=== PATIENT | female | born 1985 | race American Indian/Alaskan Native ===

== ENCOUNTER 2017-11-28 12:38 | Emergency (ER) | payer SELFPAY ==
[2017-11-28] MEDS ORDERED: ASPIRIN PO ONE (13:00)
[2017-11-28 14:06] LABS: BUN/Creatinine Ratio 9; Blood Urea Nitrogen 7 mg/dL (7-17); Calcium 9.7 mg/dL (8.4-10.2); Hemolysis Index 7
[2017-11-28 14:07] LABS: Creatine Kinase MB 1.8 ng/mL (0.0-4.0)
[2017-11-28 14:10] LABS: Basophils # (Auto) 0.1 K/mm3 (0.0-0.1); Basophils % (Auto) 0.9 % (0.0-1.8); Eosinophils # (Auto) 0.1 K/mm3 (0.0-0.4); Eosinophils % (Auto) 1.6 % (0.0-4.3); Hematocrit 42.7 % (30.3-42.9); Hemoglobin 14.1 gm/dl (10.1-14.3); Lymphocytes % (Auto) 24.9 % (13.4-35.0); Mean Corpuscular HGB Conc 33 % (30-34); Mean Corpuscular Hemoglobin 29 pg (28-32); Mean Corpuscular Volume 87 fl (79-97); Monocytes # (Auto) 0.6 K/mm3 (0.0-0.8); Monocytes % (Auto) 7.5 % (0.0-7.3); Platelet Count 337 K/mm3 (140-440); Red Blood Count 4.93 M/mm3 (3.65-5.03)
[2017-11-28 14:17] LABS: INR 0.91 (0.87-1.13)
[2017-11-28 14:18] LABS: Partial Thromboplastin Time 25.4 Sec. (24.2-36.6)
[2017-11-28 14:20] LABS: Free T4 (Free Thyroxine) 1.28 ng/dL (0.76-1.46)
--- NOTE | 2017-11-28 15:09 | Emergency Department Report ---
ED General Adult HPI - General Chief complaint: Chest Pain Stated complaint: TOO FAST HEARTBEAT Time Seen by Provider: 11/28/17 13:27 Source: patient Mode of arrival: Stretcher Limitations: No Limitations - History of Present Illness Initial comments: 31-year-old female who arrives via EMS. Prehospital EKG demonstrates a narrow complex sober trigger with tachycardia at about 220. The patient states she had "crushing" substernal chest pain to paramedics. By the time of her arrival the chest pain had improved. She did note that her heart was racing at that time of her chest pain she states. However she seems to vary on that part of the history. In any case the chest pain was worse with a deep inspiration but did not radiate. The patient's had no recent travel. At the time of arrival she is not complaining of shortness of breath. She stated that she was very sweaty with the chest pain but denied nausea or vomiting. She states that she has never had an episode like this before. -: Sudden, minutes(s) Location: chest Radiation: non-radiation Quality: crushing Consistency: now resolved Improves with: none Worsens with: none Associated Symptoms: denies other symptoms (except as listed), chest pain, diaphoresis Treatments Prior to Arrival: none - Related Data Allergies Allergy/AdvReac Type Severity Reaction Status Date / Time No Known Allergies Allergy Verified 11/28/17 12:54 ED Review of Systems ROS: Stated complaint: TOO FAST HEARTBEAT Other details as noted in HPI Constitutional: denies: chills, fever Eyes: denies: eye pain, eye discharge, vision change ENT: denies: ear pain, throat pain Respiratory: denies: cough, shortness of breath, wheezing Cardiovascular: as per HPI, chest pain. denies: palpitations Endocrine: no symptoms reported Gastrointestinal: denies: abdominal pain, nausea, diarrhea Genitourinary: denies: urgency, dysuria, discharge Musculoskeletal: denies: back pain, joint swelling, arthralgia Skin: denies: rash, lesions Neurological: denies: headache, weakness, paresthesias Psychiatric: denies: anxiety, depression Hematological/Lymphatic: denies: easy bleeding, easy bruising ED Past Medical Hx - Past Medical History Hx Asthma: Yes - Surgical History Past Surgical History?: No - Social History Smoking Status: Current Every Day Smoker Substance Use Type: None ED Physical Exam - General Limitations: No Limitations General appearance: alert, in no apparent distress, obese - Head Head exam: Present: atraumatic, normocephalic - Eye Eye exam: Present: normal appearance, PERRL, EOMI. Absent: scleral icterus - ENT ENT exam: Present: mucous membranes moist - Neck Neck exam: Present: normal inspection. Absent: tenderness, meningismus - Respiratory Respiratory exam: Present: normal lung sounds bilaterally. Absent: respiratory distress - Cardiovascular Cardiovascular Exam: Present: regular rate, normal rhythm. Absent: systolic murmur, diastolic murmur, rubs, gallop - GI/Abdominal GI/Abdominal exam: Present: soft, normal bowel sounds. Absent: distended, tenderness, guarding, rebound, rigid - Extremities Exam Extremities exam: Present: normal inspection - Back Exam Back exam: Present: normal inspection - Neurological Exam Neurological exam: Present: alert, oriented X3, CN II-XII intact. Absent: motor sensory deficit - Psychiatric Psychiatric exam: Present: normal affect, normal mood - Skin Skin exam: Present: warm, dry, intact, normal color. Absent: rash ED Course Vital Signs 11/28/17 12:54 Temperature 97.8 F Pulse Rate 90 Respiratory 16 Rate Blood Pressure 134/81 O2 Sat by Pulse 100 Oximetry - Reevaluation(s) Reevaluation #1: No recurrent chest pain. Heart rate in the high 90s. Pulse oximetry is normal. 11/28/17 15:55 Reevaluation #2: Discussed with Dr. Schafer. Further care and evaluation per Dr. Schafer. 11/28/17 15:58 ED Medical Decision Making - Lab Data Result diagrams: 11/28/17 13:34 11/28/17 13:34 Laboratory Results - last 24 hr 11/28/17 11/28/17 11/28/17 13:34 13:34 13:39 WBC 7.9 RBC 4.93 Hgb 14.1 Hct 42.7 MCV 87 MCH 29 MCHC 33 RDW 15.0 Plt Count 337 Lymph % (Auto) 24.9 Fleming % (Auto) 7.5 H Eos % (Auto) 1.6 Baso % (Auto) 0.9 Lymph # 2.0 Fleming # 0.6 Eos # 0.1 Baso # 0.1 Seg Neutrophils % 65.1 Seg Neutrophils # 5.2 PT INR APTT D-Dimer Sodium 138 Potassium 4.8 Chloride 98.3 Carbon Dioxide 26 Anion Gap 19 BUN 7 Creatinine 0.8 Estimated GFR > 60 BUN/Creatinine Ratio 9 Glucose 100 Calcium 9.7 Magnesium Total Creatine Kinase 148 H CK-MB (CK-2) 1.8 CK-MB (CK-2) Rel Index 1.2 Troponin T < 0.010 NT-Pro-B Natriuret Pep TSH Free T4 11/28/17 11/28/17 11/28/17 13:39 13:39 13:39 WBC RBC Hgb Hct MCV MCH MCHC RDW Plt Count Lymph % (Auto) Fleming % (Auto) Eos % (Auto) Baso % (Auto) Lymph # Fleming # Eos # Baso # Seg Neutrophils % Seg Neutrophils # PT 12.7 INR 0.91 APTT 25.4 D-Dimer 222.81 Sodium Potassium Chloride Carbon Dioxide Anion Gap BUN Creatinine Estimated GFR BUN/Creatinine Ratio Glucose Calcium Magnesium 1.80 Total Creatine Kinase CK-MB (CK-2) CK-MB (CK-2) Rel Index Troponin T NT-Pro-B Natriuret Pep 12.06 TSH 2.500 Free T4 1.28 - EKG Data -: EKG Interpreted by Nm EKG shows normal: sinus rhythm, axis, intervals, QRS complexes, ST-T waves Rate: normal - EKG Data Interpretation: no acute changes - Radiology Data Radiology results: pending Critical care attestation.: If time is entered above; I have spent that time in minutes in the direct care of this critically ill patient, excluding procedure time. ED Disposition Clinical Impression: Supraventricular tachycardia Chest pain Qualifiers: Chest pain type: unspecified Qualified Code(s): R07.9 - Chest pain, unspecified Disposition: OP ADMIT IP TO THIS HOSP Is pt being admited?: Yes Does the pt Need Aspirin: Yes Condition: Stable Instructions: Chest Pain (ED) Time of Disposition: 15:58
[2017-11-28 15:58] LABS: Bacteria,Urine 1+ /HPF (Negative); Bilirubin,Urine NEG (Negative); Blood,Urine MOD (Negative); Color,Urine Yellow (Yellow); Hyaline Casts,Urine 3 /LPF; Mucus,Urine FEW /HPF; Urobilinogen,Urine < 2.0 mg/dL (<2.0)
[2017-11-28 16:01] LABS: HCG Qualitative,Urine Negative (Negative)
[2017-11-28 16:04] LABS: Amphetamine Screen,Urine PRESUMPTIVE NEGATIVE; Benzodiazepines Screen,Urine PRESUMPTIVE NEGATIVE; Cannabinoid Screen,Urine PRESUMPTIVE NEGATIVE; Cocaine Screen,Urine PRESUMPTIVE NEGATIVE; Methadone Screen,Urine PRESUMPTIVE NEGATIVE; Opiate Screen,Urine PRESUMPTIVE NEGATIVE
--- NOTE | 2017-11-28 16:29 | XRay Report ---
FINAL REPORT PROCEDURE: Chest. TECHNIQUE: Portable AP views. HISTORY: Chest pain. COMPARISON: No prior studies are available for comparison. FINDINGS: The heart and mediastinum appear normal. The lungs are clear and well expanded. There are no pleural effusions. The soft tissues and regional skeleton are unremarkable. IMPRESSION: Normal study.
[2017-11-28] MEDS ORDERED: PROTONIX PO ONE (17:11)
--- NOTE | 2017-11-28 17:46 | History and Physical Report ---
History of Present Illness Chief complaint: My heart was beating fast History of present illness: 31 YO Female with Obesity, Nicotine Dependence presents to ED for evaluation of chest palpitations. Pt seen and evaluated in ED and found to have normal sinus rhythm. Pt medically optimized and back to usual state of health. Pt discharged home and instructed to F/U cardiology on Thursday, November 30, for further care and evaluation. Pt denies fever, chills, CP, NVD, Syncope, urgency, frequency, skin rash, or recent ill contacts. Past History Past Medical History: other (Obesity, Nicotine Dependence) Past Surgical History: No surgical history, Other (reviewed) Social history: single, smoking Family history: hypertension Medications and Allergies Allergies Allergy/AdvReac Type Severity Reaction Status Date / Time No Known Allergies Allergy Verified 11/28/17 12:54 Review of Systems Constitutional: no weight loss, no weight gain, no fever, no chills Ears, nose, mouth and throat: no ear pain, no ear discharge, no tinnitis, no decreased hearing, no nose pain, no nasal congestion, no nasal discharge Breasts: no change in shape, no swelling, no mass Cardiovascular: palpitations, no chest pain, no orthopnea, no edema, no syncope , no lightheadedness, no shortness of breath, no dyspnea on exertion, no paroxysmal nocturnal dyspnea, no claudication, no phlebitis, no high blood pressure, no leg edema Respiratory: no cough, no cough with sputum, no excessive sputum, no hemoptysis , no shortness of breath Gastrointestinal: no abdominal pain, no nausea, no vomiting, no diarrhea, no constipation Genitourinary Female: no pelvic pain, no flank pain, no menorrhagia, no dysuria , no urinary frequency, no urgency Rectal: no pain, no incontinence, no bleeding Musculoskeletal: no neck stiffness, no neck pain, no shooting arm pain, no arm numbness/tingling, no low back pain, no shooting leg pain, no leg numbness/ tingling Integumentary: no rash, no pruritis, no redness, no sores, no wounds, no jaundice Neurological: no transient paralysis, no paralysis, no weakness, no parathesias , no numbness, no tingling, no seizures, no syncope, no tremors Psychiatric: no anxiety, no memory loss, no change in sleep habits, no sleep disturbances, no insomnia, no hypersomnia, no change in appetite Endocrine: no cold intolerance, no heat intolerance, no polyphagia, no excessive thirst, no polyuria, no nocturia, no excessive sweating, no flushing, no proptosis, no deepening of the voice, no thyroid mass, no palpatations, no high blood sugars Hematologic/Lymphatic: no easy bruising, no easy bleeding, no lymphadenopathy, no lymphedema Allergic/Immunologic: no urticaria, no allergic rhinitis, no wheezing, no persistent infections, no anaphylaxis, no angioedema Exam - Constitutional Vitals: Temp Pulse Resp BP Pulse Ox 97.8 F 90 16 134/81 100 11/28/17 12:54 11/28/17 12:54 11/28/17 12:54 11/28/17 12:54 11/28/17 12:54 General appearance: Present: obese - EENT Eyes: Present: PERRL ENT: hearing intact, clear oral mucosa - Neck Neck: Present: supple, normal ROM - Respiratory Respiratory effort: normal Respiratory: bilateral: CTA - Cardiovascular Heart Sounds: Present: S1 & S2. Absent: rub, click - Extremities Extremities: pulses symmetrical, No edema Peripheral Pulses: within normal limits - Abdominal General gastrointestinal: Present: soft, non-tender, non-distended, normal bowel sounds Female genitourinary: Present: normal - Integumentary Integumentary: Present: clear, warm, dry - Musculoskeletal Musculoskeletal: gait normal, strength equal bilaterally - Psychiatric Psychiatric: appropriate mood/affect, intact judgment & insight - Neurologic Neurologic: CNII-XII intact, moves all extremities Results - Labs CBC & Chem 7: 11/28/17 13:34 11/28/17 13:34 Labs: Abnormal lab results 11/28/17 11/28/17 Range/Units 13:34 13:39 [place] % (Auto) 7.5 H (0.0-7.3) % Total Creatine Kinase 148 H (30-135) units/L Assessment and Plan - Patient Problems (1) Sinus tachycardia Status: Acute Plan to address problem: Symptoms resolved. D dimer, telemetry, serial EKG. Pt discharged and instructed to f/u with cardiology for further testing, [place] drug screen negative, thyroid panel normal. (2) Nicotine dependence Status: Acute Qualifiers: Substance use status: uncomplicated Plan to address problem: smoking cessation. (3) Obesity (BMI 30.0-34.9) Status: Acute Plan to address problem: balanced diet, increased physical activity
[2017-11-28 17:59] VITALS: BP 136/97
== END 2017-11-28 18:45 | disposition admitted as inpatient to this hospital (09) ==
LOC: ED 12:38
DX: I47.1 Supraventricular tachycardia (principal); R07.9 Chest pain, unspecified; J45.909 Unspecified asthma, uncomplicated; F17.200 Nicotine dependence, unspecified, uncomplicated
CPT/HCPCS: 36415; 71045; 80048; 80307; 81001; 81025; 82550; 82553; 83735; 83880; 84439; 84443; 84484; 85025; 85379; 85610; 85730; 93005; 93010

== ENCOUNTER 2019-07-25 11:37 | Emergency (ER) | payer SELFPAY ==
--- NOTE | 2019-07-25 12:20 | XRay Report ---
CHEST 1 VIEW INDICATION / CLINICAL INFORMATION: Dysrhythmia. COMPARISON: 11/28/2017 FINDINGS: SUPPORT DEVICES: None. HEART / MEDIASTINUM: No significant abnormality. LUNGS / PLEURA: No significant pulmonary or pleural abnormality.. No pneumothorax. ADDITIONAL FINDINGS: No significant additional findings. IMPRESSION: 1. No acute findings. Signer Name: Eric Elizabeth MD Signed: 07/25/2019 12:16 PM Workstation Name: [id number]
[2019-07-25 12:32] LABS: Basophils % (Auto) 0.4 % (0.0-1.8); Eosinophils # (Auto) 0.1 K/mm3 (0.0-0.4); Eosinophils % (Auto) 1.3 % (0.0-4.3); Hematocrit 42.4 % (30.3-42.9); Hemoglobin 13.9 gm/dl (10.1-14.3); Lymphocytes # (Auto) 1.4 K/mm3 (1.2-5.4); Lymphocytes % (Auto) 18.8 % (13.4-35.0); Mean Corpuscular HGB Conc 33 % (30-34); Mean Corpuscular Volume 87 fl (79-97); Monocytes # (Auto) 0.6 K/mm3 (0.0-0.8); Monocytes % (Auto) 8.3 % (0.0-7.3); Platelet Count 312 K/mm3 (140-440); Red Blood Count 4.88 M/mm3 (3.65-5.03); Red Cell Distribution Width 15.4 % (13.2-15.2)
[2019-07-25 12:46] LABS: INR 1.03 (0.87-1.13)
[2019-07-25 12:49] LABS: Partial Thromboplastin Time 24.3 Sec. (24.2-36.6)
[2019-07-25 12:56] LABS: Alanine Aminotransferase 32 units/L (7-56); Albumin 4.2 g/dL (3.9-5); BUN/Creatinine Ratio 11; Blood Urea Nitrogen 10 mg/dL (7-17); Calcium 9.4 mg/dL (8.4-10.2); Hemolysis Index 8
--- NOTE | 2019-07-25 12:57 | Emergency Department Report ---
ED General Adult HPI - General Chief complaint: Arrhythmia/Palpitations Stated complaint: CHEST PAIN/SVT Time Seen by Provider: 07/25/19 11:49 Source: patient, EMS Mode of arrival: Stretcher Limitations: No Limitations - History of Present Illness Initial comments: The patient presents to the emergency department the chief complaint of heart palpitations that started this morning. 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 Patient was given 6 mg of adenosine by EMS and a heart rate increased to 83. Patient denies chest pain currently, shortness breath, or abdo forrest pain. -: Sudden Severity scale (0 -10): 0 Consistency: now resolved Improves with: none Worsens with: none Associated Symptoms: denies other symptoms Treatments Prior to Arrival: none - Related Data Previous Rx's Medication Instructions Recorded Last Taken Type Metoprolol Succinate [Toprol Xl] 25 mg PO QDAY #30 tab.er.24h 07/25/19 Unknown Rx Allergies Allergy/AdvReac Type Severity Reaction Status Date / Time No Known Allergies Allergy Verified 11/28/17 12:54 ED Review of Systems ROS: Stated complaint: CHEST PAIN/SVT Other details as noted in HPI Comment: All other systems reviewed and negative Constitutional: denies: chills, fever Eyes: denies: eye pain, eye discharge, vision change ENT: denies: ear pain, throat pain Respiratory: denies: cough, shortness of breath, wheezing Cardiovascular: palpitations. denies: chest pain Endocrine: no symptoms reported Gastrointestinal: denies: abdominal pain, nausea, diarrhea Genitourinary: denies: urgency, dysuria, discharge Musculoskeletal: denies: back pain, joint swelling, arthralgia Skin: denies: rash, lesions Neurological: denies: headache, weakness, paresthesias Psychiatric: denies: anxiety, depression Hematological/Lymphatic: denies: easy bleeding, easy bruising ED Past Medical Hx - Past Medical History Previous Medical History?: Yes Hx Asthma: Yes Additional medical history: SVT - Surgical History Past Surgical History?: No - Social History Smoking Status: Current Every Day Smoker - Medications Home Medications: Home Medications Medication Instructions Recorded Confirmed Last Taken Type Metoprolol Succinate [Toprol Xl] 25 mg PO QDAY #30 tab.er.24h 07/25/19 Unknown Rx ED Physical Exam - General Limitations: No Limitations General appearance: alert, in no apparent distress - Head Head exam: Present: atraumatic, normocephalic - Eye Eye exam: Present: normal appearance, PERRL, EOMI - ENT ENT exam: Present: mucous membranes moist - Neck Neck exam: Present: normal inspection - Respiratory Respiratory exam: Present: normal lung sounds bilaterally. Absent: respiratory distress, wheezes - Cardiovascular Cardiovascular Exam: Present: regular rate, normal rhythm. Absent: systolic murmur, diastolic murmur, rubs, gallop - GI/Abdominal GI/Abdominal exam: Present: soft, normal bowel sounds. Absent: distended, tenderness - Extremities Exam Extremities exam: Present: normal inspection - Back Exam Back exam: Present: normal inspection - Neurological Exam Neurological exam: Present: alert, oriented X3, CN II-XII intact. Absent: motor sensory deficit - Psychiatric Psychiatric exam: Present: normal affect, normal mood - Skin Skin exam: Present: warm, dry, intact, normal color. Absent: rash ED Course Vital Signs 07/25/19 07/25/19 07/25/19 11:42 11:46 12:00 Pulse Rate 88 86 Respiratory 18 16 Rate Blood Pressure 108/73 111/72 O2 Sat by Pulse 100 100 Oximetry 07/25/19 07/25/19 13:00 14:00 Pulse Rate 90 86 Respiratory 16 20 Rate Blood Pressure 113/80 125/79 O2 Sat by Pulse 99 99 Oximetry ED Medical Decision Making - Lab Data Result diagrams: 07/25/19 12:10 07/25/19 12:10 Lab Results 07/25/19 07/25/19 07/25/19 Range/Units 12:10 12:10 12:10 WBC 7.4 (4.5-11.0) K/mm3 RBC 4.88 (3.65-5.03) M/mm3 Hgb 13.9 (10.1-14.3) gm/dl Hct 42.4 (30.3-42.9) % MCV 87 (79-97) fl MCH 29 (28-32) pg MCHC 33 (30-34) % RDW 15.4 H (13.2-15.2) % Plt Count 312 (140-440) K/mm3 Lymph % (Auto) 18.8 (13.4-35.0) % [place] % (Auto) 8.3 H (0.0-7.3) % Eos % (Auto) 1.3 (0.0-4.3) % Baso % (Auto) 0.4 (0.0-1.8) % Lymph # 1.4 (1.2-5.4) K/mm3 [place] # 0.6 (0.0-0.8) K/mm3 Eos # 0.1 (0.0-0.4) K/mm3 Baso # 0.0 (0.0-0.1) K/mm3 Seg Neutrophils % 71.2 H (40.0-70.0) % Seg Neutrophils # 5.3 (1.8-7.7) K/mm3 PT 13.6 (12.2-14.9) Sec. INR 1.03 (0.87-1.13) APTT 24.3 (24.2-36.6) Sec. Sodium 141 (137-145) mmol/L Potassium 4.5 (3.6-5.0) mmol/L Chloride 101.1 (98-107) mmol/L Carbon Dioxide 20 L (22-30) mmol/L Anion Gap 24 mmol/L BUN 10 (7-17) mg/dL Creatinine 0.9 (0.7-1.2) mg/dL Estimated GFR > 60 ml/min BUN/Creatinine Ratio 11 % Glucose 87 (65-100) mg/dL Calcium 9.4 (8.4-10.2) mg/dL Magnesium 2.10 (1.7-2.3) mg/dL Total Bilirubin 0.40 (0.1-1.2) mg/dL AST 20 (5-40) units/L ALT 32 (7-56) units/L Alkaline Phosphatase 86 (35-129) units/L Total Protein 8.0 (6.3-8.2) g/dL Albumin 4.2 (3.9-5) g/dL Albumin/Globulin Ratio 1.1 % TSH (0.270-4.200) mlU/mL Thyroxine (T4) (4.0-12.0) ug/dL Urine Color (Yellow) Urine Turbidity (Clear) Urine pH (5.0-7.0) Ur Specific Reading (1.003-1.030) Urine Protein (Negative) mg/dL Urine Glucose (UA) (Negative) mg/dL Urine Ketones (Negative) mg/dL Urine Blood (Negative) Urine Nitrite (Negative) Urine Bilirubin (Negative) Urine Urobilinogen (<2.0) mg/dL Ur Leukocyte Esterase (Negative) Urine WBC (Auto) (0.0-6.0) /HPF Urine RBC (Auto) (0.0-6.0) /HPF U Epithel Cells (Auto) (0-13.0) /HPF Urine Bacteria (Auto) (Negative) /HPF Urine Mucus /HPF Urine Opiates Screen Urine Methadone Screen Ur Barbiturates Screen Ur Phencyclidine Scrn Ur Amphetamines Screen U Benzodiazepines Scrn Urine Cocaine Screen U Marijuana (THC) Screen Drugs of Abuse Note 07/25/19 07/25/19 07/25/19 Range/Units 12:10 12:10 13:05 WBC (4.5-11.0) K/mm3 RBC (3.65-5.03) M/mm3 Hgb (10.1-14.3) gm/dl Hct (30.3-42.9) % MCV (79-97) fl MCH (28-32) pg MCHC (30-34) % RDW (13.2-15.2) % Plt Count (140-440) K/mm3 Lymph % (Auto) (13.4-35.0) % [place] % (Auto) (0.0-7.3) % Eos % (Auto) (0.0-4.3) % Baso % (Auto) (0.0-1.8) % Lymph # (1.2-5.4) K/mm3 [place] # (0.0-0.8) K/mm3 Eos # (0.0-0.4) K/mm3 Baso # (0.0-0.1) K/mm3 Seg Neutrophils % (40.0-70.0) % Seg Neutrophils # (1.8-7.7) K/mm3 PT (12.2-14.9) Sec. INR (0.87-1.13) APTT (24.2-36.6) Sec. Sodium (137-145) mmol/L Potassium (3.6-5.0) mmol/L Chloride (98-107) mmol/L Carbon Dioxide (22-30) mmol/L Anion Gap mmol/L BUN (7-17) mg/dL Creatinine (0.7-1.2) mg/dL Estimated GFR ml/min BUN/Creatinine Ratio % Glucose (65-100) mg/dL Calcium (8.4-10.2) mg/dL Magnesium (1.7-2.3) mg/dL Total Bilirubin (0.1-1.2) mg/dL AST (5-40) units/L ALT (7-56) units/L Alkaline Phosphatase (35-129) units/L Total Protein (6.3-8.2) g/dL Albumin (3.9-5) g/dL Albumin/Globulin Ratio % TSH 2.960 (0.270-4.200) mlU/mL Thyroxine (T4) 8.9 (4.0-12.0) ug/dL Urine Color [place] (Yellow) Urine Turbidity Slightly-cloudy (Clear) Urine pH 7.0 (5.0-7.0) Ur Specific Reading 1.019 (1.003-1.030) Urine Protein 100 mg/dl (Negative) mg/dL Urine Glucose (UA) 50 (Negative) mg/dL Urine Ketones 20 (Negative) mg/dL Urine Blood Neg (Negative) Urine Nitrite Neg (Negative) Urine Bilirubin Neg (Negative) Urine Urobilinogen 2.0 (<2.0) mg/dL Ur Leukocyte Esterase Tr (Negative) Urine WBC (Auto) 2.0 (0.0-6.0) /HPF Urine RBC (Auto) 1.0 (0.0-6.0) /HPF U Epithel Cells (Auto) 4.0 (0-13.0) /HPF Urine Bacteria (Auto) 1+ (Negative) /HPF Urine Mucus Few /HPF Urine Opiates Screen Urine Methadone Screen Ur Barbiturates Screen Ur Phencyclidine Scrn Ur Amphetamines Screen U Benzodiazepines Scrn Urine Cocaine Screen U Marijuana (THC) Screen Drugs of Abuse Note 07/25/19 Range/Units 13:05 WBC (4.5-11.0) K/mm3 RBC (3.65-5.03) M/mm3 Hgb (10.1-14.3) gm/dl Hct (30.3-42.9) % MCV (79-97) fl MCH (28-32) pg MCHC (30-34) % RDW (13.2-15.2) % Plt Count (140-440) K/mm3 Lymph % (Auto) (13.4-35.0) % [place] % (Auto) (0.0-7.3) % Eos % (Auto) (0.0-4.3) % Baso % (Auto) (0.0-1.8) % Lymph # (1.2-5.4) K/mm3 [place] # (0.0-0.8) K/mm3 Eos # (0.0-0.4) K/mm3 Baso # (0.0-0.1) K/mm3 Seg Neutrophils % (40.0-70.0) % Seg Neutrophils # (1.8-7.7) K/mm3 PT (12.2-14.9) Sec. INR (0.87-1.13) APTT (24.2-36.6) Sec. Sodium (137-145) mmol/L Potassium (3.6-5.0) mmol/L Chloride (98-107) mmol/L Carbon Dioxide (22-30) mmol/L Anion Gap mmol/L BUN (7-17) mg/dL Creatinine (0.7-1.2) mg/dL Estimated GFR ml/min BUN/Creatinine Ratio % Glucose (65-100) mg/dL Calcium (8.4-10.2) mg/dL Magnesium (1.7-2.3) mg/dL Total Bilirubin (0.1-1.2) mg/dL AST (5-40) units/L ALT (7-56) units/L Alkaline Phosphatase (35-129) units/L Total Protein (6.3-8.2) g/dL Albumin (3.9-5) g/dL Albumin/Globulin Ratio % TSH (0.270-4.200) mlU/mL Thyroxine (T4) (4.0-12.0) ug/dL Urine Color (Yellow) Urine Turbidity (Clear) Urine pH (5.0-7.0) Ur Specific Reading (1.003-1.030) Urine Protein (Negative) mg/dL Urine Glucose (UA) (Negative) mg/dL Urine Ketones (Negative) mg/dL Urine Blood (Negative) Urine Nitrite (Negative) Urine Bilirubin (Negative) Urine Urobilinogen (<2.0) mg/dL Ur Leukocyte Esterase (Negative) Urine WBC (Auto) (0.0-6.0) /HPF Urine RBC (Auto) (0.0-6.0) /HPF U Epithel Cells (Auto) (0-13.0) /HPF Urine Bacteria (Auto) (Negative) /HPF Urine Mucus /HPF Urine Opiates Screen Presumptive negative Urine Methadone Screen Presumptive negative Ur Barbiturates Screen Presumptive negative Ur Phencyclidine Scrn Presumptive negative Ur Amphetamines Screen Presumptive negative U Benzodiazepines Scrn Presumptive negative Urine Cocaine Screen Presumptive negative U Marijuana (THC) Screen Presumptive negative Drugs of Abuse Note Disclamer - EKG Data -: EKG Interpreted by Sc EKG shows normal: sinus rhythm Rate: normal - Medical Decision Making Discussed results with patient Spoke with Natty of [facility] who discussed patient with Dr. Nicholson Plan to start BB and outpatient follow up Critical care attestation.: If time is entered above; I have spent that time in minutes in the direct care of this critically ill patient, excluding procedure time. ED Disposition Clinical Impression: Arrhythmia, SVT (supraventricular tachycardia) Disposition: DC-01 TO HOME OR SELFCARE Is pt being admited?: No Does the pt Need Aspirin: No Condition: Stable Instructions: Supraventricular Tachycardia (ED), Palpitations (ED) Additional Instructions: return if worse Please call [facility] for a follow up appointment [phone] Prescriptions: Metoprolol Succinate [Toprol Xl] 25 mg PO QDAY #30 tab.er.24h Referrals: PRIMARY CAREMD [Primary Care Provider] - 3-5 Days SONIA NICHOLSON MD [Staff Physician] - 3-5 Days Time of Disposition: 14:52
[2019-07-25 13:24] LABS: Bacteria,Urine 1+ /HPF (Negative); Bilirubin,Urine NEG (Negative); Blood,Urine NEG (Negative); Color,Urine Amber (Yellow); Mucus,Urine FEW /HPF
[2019-07-25 13:31] LABS: Amphetamine Screen,Urine PRESUMPTIVE NEGATIVE; Benzodiazepines Screen,Urine PRESUMPTIVE NEGATIVE; Cannabinoid Screen,Urine PRESUMPTIVE NEGATIVE; Cocaine Screen,Urine PRESUMPTIVE NEGATIVE; Methadone Screen,Urine PRESUMPTIVE NEGATIVE; Opiate Screen,Urine PRESUMPTIVE NEGATIVE
[2019-07-25 16:00] VITALS: BP 109/64
== END 2019-07-25 16:00 | disposition home or self-care (01) ==
LOC: ED 11:37
DX: I49.9 Cardiac arrhythmia, unspecified (principal); I47.1 Supraventricular tachycardia; J45.909 Unspecified asthma, uncomplicated; F17.200 Nicotine dependence, unspecified, uncomplicated; Z79.899 Other long term (current) drug therapy
CPT/HCPCS: 36415; 71045; 80053; 80307; 81001; 83735; 84436; 84443; 85025; 85610; 85730; 93005; 93010

== ENCOUNTER 2020-09-09 00:55 | Emergency (ER) | payer SELFPAY ==
[2020-09-09] MEDS ORDERED: ASPIRIN 81 MG TAB CHEW PO ONE (01:03)
--- NOTE | 2020-09-09 01:06 | Event Note ---
ED Screening Note Date of service: 09/09/20 Time: 01:03 ED Screening Note: Patient is 34-year-old -[place] female with a history of asthma, chronic low back pain and anxiety who presents to the ED with acute onset persistent intermittently elevated heart rate with left-sided chest pain and suprapubic pain for the last 1 week, worse in the last 8 hours. Patient states that the symptoms have been intermittent and persistent. Patient also complains of worsening low back pain. Patient denies dizziness, syncope, abdominal pain, shortness of breath, dysuria, urinary frequency and urgency, vaginal bleeding, vaginal discharge, cough, diarrhea, nausea and vomiting, fever and chills. This initial assessment/diagnostic orders/clinical plan/treatment(s) is/are subject to change based on patients health status, clinical progression and re- assessment by fellow clinical providers in the ED. Further treatment and workup at subsequent clinical providers discretion. Patient/guardian urged not to elope from the ED as their condition may be serious if not clinically assessed and managed. Initial orders include: CBC, CMP, troponin, EKG, chest x-ray, UA, hCG serum, lipase
[2020-09-09 01:42] LABS: Basophils # (Auto) 0.1 K/mm3 (0.0-0.1); Basophils % (Auto) 1.5 % (0.0-1.8); Eosinophils # (Auto) 0.2 K/mm3 (0.0-0.4); Eosinophils % (Auto) 2.8 % (0.0-4.3); Hematocrit 39.5 % (30.3-42.9); Hemoglobin 13.4 gm/dl (10.1-14.3); Lymphocytes # (Auto) 3.2 K/mm3 (1.2-5.4); Lymphocytes % (Auto) 37.5 % (13.4-35.0); Mean Corpuscular HGB Conc 34 % (30-34); Mean Corpuscular Volume 89 fl (79-97); Monocytes # (Auto) 0.6 K/mm3 (0.0-0.8); Monocytes % (Auto) 7.4 % (0.0-7.3); Platelet Count 314 K/mm3 (140-440); Red Blood Count 4.45 M/mm3 (3.65-5.03); Red Cell Distribution Width 13.8 % (13.2-15.2)
[2020-09-09 02:05] LABS: Alanine Aminotransferase 25 units/L (7-56); Blood Urea Nitrogen 7 mg/dL (7-17); Calcium 8.9 mg/dL (8.4-10.2); Hemolysis Index 0
[2020-09-09 02:05] LABS: Bilirubin,Urine NEG (Negative); Blood,Urine NEG (Negative); Color,Urine Colorless (Yellow); Protein,Urine <15 mg/dL mg/dL (Negative); RBC,Urine < 1.0 /HPF (0.0-6.0); Urobilinogen,Urine < 2.0 mg/dL (<2.0); WBC,Urine < 1.0 /HPF (0.0-6.0)
[2020-09-09 02:06] LABS: BUN/Creatinine Ratio 10
--- NOTE | 2020-09-09 02:26 | XRay Report ---
CHEST 1 VIEW INDICATION: chest pain, heart racing. COMPARISON: 07/25/2019 FINDINGS: Support devices: None. Heart: Normal. Lungs/Pleura: No acute pulmonary or pleural findings. IMPRESSION: 1. No acute findings. Signer Name: Joseph Arizmendi MD Signed: 09/09/2020 2:22 AM Workstation Name: [id number]
[2020-09-09 02:51] VITALS: BP 128/84
--- NOTE | 2020-09-09 02:55 | Emergency Department Report ---
ED General Adult HPI - General Chief complaint: Arrhythmia/Palpitations Stated complaint: HEAD AND ABDOMINAL PAIN Source: patient Mode of arrival: Ambulatory Limitations: No Limitations - History of Present Illness Initial comments: Patient is 34-year-old -[place] female with a history of asthma, chronic low back pain and anxiety who presents to the ED with acute onset persistent intermittently elevated heart rate with left-sided chest pain and suprapubic pain for the last 1 week, worse in the last 8 hours. Patient states that the symptoms have been intermittent and persistent. Patient also complains of worsening low back pain. Patient denies dizziness, syncope, abdominal pain, shortness of breath, dysuria, urinary frequency and urgency, vaginal bleeding, vaginal discharge, cough, diarrhea, nausea and vomiting, fever and chills. MD Complaint: Elevated heart rate, low back pain, pelvic pain -: Sudden, week(s) (1) Location: chest, back (Low back), abdomen Radiation: non-radiation Severity scale (0 -10): 3 Quality: aching, dull Consistency: intermittent Improves with: none Worsens with: none Associated Symptoms: denies other symptoms, chest pain. denies: confusion, cough, diaphoresis, fever/chills, headaches, loss of appetite, malaise, nausea/vomiting, rash, seizure, shortness of breath, syncope, weakness, other Treatments Prior to Arrival: none - Related Data Previous Rx's Medication Instructions Recorded Last Taken Type Metoprolol Succinate [Toprol Xl] 25 mg PO QDAY #30 tab.er.24h 07/25/19 Unknown Rx Cyclobenzaprine [Flexeril] 10 mg PO TID PRN #21 tablet 09/09/20 Unknown Rx Naproxen 500 mg PO Q12H PRN #30 tablet 09/09/20 Unknown Rx hydrOXYzine PAMOATE [Vistaril] 50 mg PO Q6HR PRN #30 capsule 09/09/20 Unknown Rx Allergies Allergy/AdvReac Type Severity Reaction Status Date / Time No Known Allergies Allergy Verified 11/28/17 12:54 ED Review of Systems ROS: Stated complaint: HEAD AND ABDOMINAL PAIN Other details as noted in HPI Constitutional: denies: chills, fever Eyes: denies: eye pain, eye discharge, vision change ENT: denies: ear pain, throat pain Respiratory: denies: cough, shortness of breath, wheezing Cardiovascular: chest pain (Left-sided chest wall discomfort), other (Elevated heart rate). denies: palpitations Endocrine: no symptoms reported Gastrointestinal: abdominal pain (Suprapubic pain). denies: nausea, vomiting, diarrhea Genitourinary: denies: urgency, dysuria, discharge Musculoskeletal: back pain (Low back pain). denies: joint swelling, arthralgia Skin: denies: rash, lesions Neurological: denies: headache, weakness, paresthesias Psychiatric: anxiety. denies: depression Hematological/Lymphatic: denies: easy bleeding, easy bruising ED Past Medical Hx - Past Medical History Previous Medical History?: Yes Hx Psychiatric Treatment: Yes (Anxiety) Hx Asthma: Yes Additional medical history: SVT; chronic low back pain - Surgical History Past Surgical History?: No - Social History Smoking Status: Former Smoker Substance Use Type: None - Medications Home Medications: Home Medications Medication Instructions Recorded Confirmed Last Taken Type Metoprolol Succinate [Toprol Xl] 25 mg PO QDAY #30 tab.er.24h 07/25/19 Unknown Rx Cyclobenzaprine [Flexeril] 10 mg PO TID PRN #21 tablet 09/09/20 Unknown Rx Naproxen 500 mg PO Q12H PRN #30 tablet 09/09/20 Unknown Rx hydrOXYzine PAMOATE [Vistaril] 50 mg PO Q6HR PRN #30 capsule 09/09/20 Unknown Rx ED Physical Exam - General Limitations: No Limitations General appearance: alert, in no apparent distress - Head Head exam: Present: atraumatic, normocephalic, normal inspection - Eye Eye exam: Present: normal appearance, PERRL, EOMI Pupils: Present: normal accommodation - ENT ENT exam: Present: normal exam, normal orophraynx, mucous membranes moist, TM's normal bilaterally, normal external ear exam - Neck Neck exam: Present: normal inspection, full ROM - Respiratory Respiratory exam: Present: normal lung sounds bilaterally. Absent: respiratory distress, wheezes, rales, rhonchi, chest wall tenderness, accessory muscle use, decreased breath sounds - Cardiovascular Cardiovascular Exam: Present: normal rhythm, tachycardia, normal heart sounds. Absent: systolic murmur, diastolic murmur, rubs, gallop - GI/Abdominal GI/Abdominal exam: Present: soft, normal bowel sounds. Absent: tenderness, guarding, rebound, hyperactive bowel sounds, hypoactive bowel sounds, organomegaly - Extremities Exam Extremities exam: Present: normal inspection, full ROM, normal capillary refill - Back Exam Back exam: Present: normal inspection, full ROM, tenderness (Palpable lumbosacral paraspinal musculoskeletal tenderness), muscle spasm, paraspinal tenderness. Absent: CVA tenderness (L) - Neurological Exam Neurological exam: Present: alert, oriented X3, CN II-XII intact, normal gait, reflexes normal - Psychiatric Psychiatric exam: Present: normal affect, normal mood, anxious - Skin Skin exam: Present: warm, dry, intact, normal color. Absent: rash ED Course Vital Signs 09/09/20 01:03 Temperature 98.8 F Pulse Rate 115 H Respiratory 18 Rate Blood Pressure 128/84 O2 Sat by Pulse 99 Oximetry ED Medical Decision Making - Lab Data Result diagrams: 09/09/20 01:15 09/09/20 01:15 - EKG Data EKG shows normal: sinus rhythm Rate: tachycardia - EKG Data 09/09/20 03:59 EKG shows sinus tachycardia with a ventricular rate of [address] or T wave abnormalities. - Radiology Data Radiology results: report reviewed, image reviewed [address] [address] XRay Report Signed Patient: CARLIE SINGLETARY MR#: [id number] : 1985 Acct:[id number] Age/Sex: 34 / F ADM Date: 09/09/20 Loc: ED Attending Dr: Ordering Physician: ROXANA HENRIQUEZ Date of Service: 09/09/20 Procedure(s): XR chest 1V ap Accession Number(s): [id number] cc: ROXANA HENRIQUEZ Fluoro Time In Minutes: CHEST 1 VIEW INDICATION: chest pain, heart racing. COMPARISON: 07/25/2019 FINDINGS: Support devices: None. Heart: Normal. Lungs/Pleura: No acute pulmonary or pleural findings. IMPRESSION: 1. No acute findings. Signer Name: Joseph Arizmendi MD Signed: 09/09/2020 2:22 AM Workstation Name: [id number] Transcribed By: SURYA Dictated By: Joseph Arizmendi MD Electronically Authenticated By: Joseph Arizmendi MD Signed Date/Time: 09/09/20221 DD/ 0221 TD/TT: - Medical Decision Making This is 34-year-old -[place] female with a history of asthma, chronic low back pain and anxiety who presents to the ED with acute onset persistent intermittently elevated heart rate with left-sided chest pain and suprapubic pain for the last 1 week, worse in the last 8 hours. Patient states that the symptoms have been intermittent and persistent. Patient also complains of worsening low back pain. In the ED, patient is alert and oriented x3 and is not in distress. Patient is afebrile but tachycardic in triage. Lab test results were reviewed and are all nonactionable including urinalysis and D-dimer levels. Chest x-ray shows no acute cardiopulmonary abnormalities or pneumonitis. Patient symptoms are likely due to anxiety causing tachycardia as the patient was crying during the history and physical exam, leading to her tachycardia. EKG shows sinus tachycardia with ventricular rate of 110 bpm. Patient also left the ED and went to her vehicle and use albuterol inhaler. On reevaluation, patient's tachycardia persisted, and the heart rate was 102 bpm prior to being discharged home. This is however patient's baseline as the patient has chronic tachycardia. Patient was therefore discharged home and given a referral to the construction specialist Dr. Gonzalez for outpatient follow-up of her chronic tachycardia. Patient was also given a prescription for anxiety medication and pain medication for chronic low back pain. Patient was advised return to the ED immediately if symptoms get worse. - Differential Diagnosis anxiety; ACS; Pneumonia; PE; GERD; UTI; Chronic tachycardia Critical care attestation.: If time is entered above; I have spent that time in minutes in the direct care of this critically ill patient, excluding procedure time. ED Disposition Clinical Impression: Sinus tachycardia, Anxiety as acute reaction to exceptional stress, Acute exacerbation of chronic low back pain Disposition: -01 TO HOME OR SELFCARE Is pt being admited?: No Does the pt Need Aspirin: No Condition: Stable Instructions: Generalized Anxiety Disorder, Adult, Sinus Tachycardia, Chronic Back Pain, [id number] Additional Instructions: Lab test results were reviewed and are all nonactionable including D-dimer level. Chest x-ray showed no acute cardiopulmonary abnormalities or pneumonitis. Your EKG showed sinus tachycardia which is your baseline chronic condition, and your heart rate continued in the baseline tachycardia zone complicated by the fact that you use your albuterol inhaler while in the ED. Therefore your symptoms are also likely due to persistent anxiety. Therefore take medications for anxiety as advised, follow-up with a construction specialist Dr. Patty gold as advised, contact his office first thing in the morning on Thursday, September 10, 2020 to schedule a follow-up appointment. Return to the ED immediately if symptoms get worse. Prescriptions: Cyclobenzaprine [Flexeril] 10 mg PO TID PRN #21 tablet PRN Reason: Muscle Spasm Naproxen 500 mg PO Q12H PRN #30 tablet PRN Reason: Pain , Severe (7-10) hydrOXYzine PAMOATE [Vistaril] 50 mg PO Q6HR PRN #30 capsule PRN Reason: Anxiety Referrals: [facility] [Provider Group] - 3-5 Days MARTA GONZALEZ MD [Staff Physician] - 24 Hours Time of Disposition: 03:55 Print Language: MARTINIQUAIS
== END 2020-09-09 04:38 | disposition home or self-care (01) ==
LOC: ED 00:55
DX: F41.1 Generalized anxiety disorder (principal); F43.0 Acute stress reaction; M54.5 Low back pain; R00.0 Tachycardia, unspecified; J45.909 Unspecified asthma, uncomplicated; Z79.899 Other long term (current) drug therapy; Z87.891 Personal history of nicotine dependence
CPT/HCPCS: 36415; 71045; 80053; 81001; 83690; 84484; 84703; 85025; 85379; 93005